=== PATIENT | male | born 2000 | race Caucasian/White ===

== ENCOUNTER 2024-12-02 18:51 | Emergency (ER) | payer BC, SELFPAY ==
[2024-12-02 19:01] VITALS: BP 129/84; PULSE 66; TEMP 37.1; O2SAT 97; BMI 24.4
[2024-12-02 20:25] VITALS: O2SAT 97
[2024-12-02 20:37] LABS: Basophils Absolute Auto 0.1 10^3/uL (0.0-0.1); Basophils Percent Auto 0.5 % (0.2-2.0); Eosinophils Absolute Auto 0.2 10^3/uL (0.0-0.7); Eosinophils Percent Auto 1.4 % (0.9-7.0); Hematocrit 42.3 % (42.0-54.0); Hemoglobin 14.2 g/dL (14.0-18.0); Immature Granulocytes Abs Auto 0.04 10^3/uL (0.00-0.03); Immature Granulocytes Pct Auto 0.4 % (0.0-0.5); Lymphocytes Absolute Auto 2.2 10^3/uL (1.2-3.8); Lymphocytes Percent Auto 20.9 % (20.5-60.0); Mean Corpuscular HGB Conc 33.6 g/dL (29.9-35.2); Mean Corpuscular Hemoglobin 30.5 pg (25.9-34.0); Monocytes Absolute Auto 0.9 10^3/uL (0.3-0.8); Monocytes Percent Auto 8.9 % (1.7-12.0); Neutrophils Absolute Auto 7.1 10^3/uL (1.4-6.5); Neutrophils Percent Auto 67.9 % (43.0-75.0); Platelet Count 332 10^3/uL (150-450); Red Blood Count 4.65 10^6/uL (4.70-6.10); Red Cell Distribution Width 12.8 % (11.0-15.0); White Blood Count 10.4 10^3/uL (4.0-11.0)
[2024-12-02 20:38] LABS: Bilirubin Urine NEGATIVE (NEGATIVE); Blood Urine NEGATIVE (NEGATIVE); Clarity Urine CLEAR (CLEAR); Color Urine LT. YELLOW (YELLOW); Glucose Urine UA NEGATIVE (NEGATIVE); Ketones Urine NEGATIVE (NEGATIVE); Leukocyte Esterase Urine NEGATIVE (NEGATIVE); Nitrite Urine NEGATIVE (NEGATIVE); Protein Urine NEGATIVE (NEG/TRACE); Urobilinogen Urine 0.2 EU/dL (0.2-1.0); pH Urine 6.5 (5.0-9.0)
[2024-12-02 20:45] LABS: Bacteria Urine NONE SEEN #/HPF (NONE SEEN); Cast Seen? NONE SEEN #/LPF (NONE SEEN); Crystals Seen? None Seen #/HPF (None Seen); Mucus Urine NONE SEEN (NONE SEEN); RBC Urine NONE SEEN #/HPF (0-2); Squamous Epithelial Cell Urine RARE #/LPF (NONE/RARE); WBC Urine 0-2 #/HPF (NONE SEEN)
[2024-12-02 20:47] LABS: Anion Gap 15.2; Calcium 8.8 mg/dL (8.5-10.1); Carbon Dioxide 29.5 mmol/L (21.0-32.0); Chloride 104 mmol/L (98-107); Estimated GFR (African America >60 (>=60 mL/min/1.73m^2); Estimated GFR (Non-African Ame >60 (>=60 mL/min/1.73m^2); Glucose 118 mg/dL (74-106); Potassium 3.7 mmol/L (3.5-5.1); Sodium 145 mmol/L (136-145)
--- NOTE | 2024-12-02 21:15 | ED_ITS ---
HPI HPI - General Adult General Stated complaint: POSS BLOOD CLOT, SOB-KIDNEY DISEASE Time Seen by Provider: 12/02/24 19:00 Source: patient Mode of arrival: walk-in History of Present Illness HPI narrative: cc = multiple concerns Patient is working in [place], lives in [place] and is not returning there until January. He has multiple concerns in his ED visit. He has been off of several of his medications for some time . He says that he has not been able to get refills in this area, but he has also not talk to his primary care physician about getting refills transferred to a local pharmacy such as [facility] or [facility] or even [facility]. He has nephrotic syndrome and has also been previously diagnosed with blood clot in the legs. He is concerned about some pain on the right side of his chest. He admits that he has a nonproductive cough has been present for several days and that the pain started after the cough started. No fever or chills. No vomiting or diarrhea. He also has a prominent vein in the anterior portion of the right lower leg, just proximal to the ankle, which he said made him concerned that he might have a blood clot. No calf pain, popliteal pain, lower extremity swelling that is unilateral. He has some mild bilateral edema. No problems urinating or having a bowel movement. He is concerned about a worsening of his nephrotic syndrome as the etiology for his bilateral lower extremity swelling. He is also concerned about blood clot being the possibility as the cause of his prominent vein in his right lower leg and the right sided chest pain. Related Data Home Medications ?Medication ?Instructions ?Recorded ?Confirmed losartan 25 mg tablet (Cozaar) 25 mg PO DAILY 12/02/24 12/02/24 mycophenolate mofetil 500 mg 500 mg PO BID 12/02/24 12/02/24 tablet (CellCept) prednisone 10 mg tablet 10 mg PO DAILY 12/02/24 12/02/24 rosuvastatin 5 mg tablet (Crestor) 5 mg PO DAILY 12/02/24 12/02/24 tacrolimus 1 mg capsule, 1 mg PO Q12H 12/02/24 12/02/24 immediate-release (Prograf) Allergies Allergy/AdvReac Type Severity Reaction Status Date / Time Iodinated Contrast Media AdvReac Severe Anaphylaxis Verified 12/02/24 19:00 NSAIDS (Non-Steroidal AdvReac Severe Anaphylaxis Verified 12/02/24 19:00 Anti-Inflamma Opioid HPI Opioid Management Most Recent Opioid Data: No Data to Display PFSH PFSH Social History Little interest or pleasure in doing things: not at all Feeling down, depressed, or hopeless: not at all Exam Narrative Exam Narrative: Nurses notes and vital signs reviewed and patient is not hypoxic. afebrile General: Well-appearing and in no apparent distress. Skin: Warm, dry, no pallor noted. No rash. Head: Normocephalic, atraumatic. Neck: Supple, non-tender. No meningismus. Eye: Pupils are equal, round and EOMI. No scleral icterus. Ears, Nose, Mouth, and Throat: TM are clear, no posterior oropharynx erythema or nasal mucosal hypertrophy, uvula is mid-line Oral mucosa is moist Cardiovascular: Regular Rate and Rhythm without murmur, gallop or rub. Respiratory: No accessory muscle use or respiratory distress. Lungs are clear to auscultation, no wheezing, rales or rhonchi Chest Wall: Lateral right-sided chest wall tenderness without crepitus or subcutaneous emphysema Back: No midline thoracic or lumbar vertebral tenderness. No CVA tenderness Musculoskeletal: normal ROM, no calf or popliteal tenderness, bilateral lower extremity nonpitting edema/swelling GI: Abdomen is soft, non-distended. Normal bowel sounds. No masses appreciated. No tenderness to palpation. No rebound, guarding, or rigidity noted. Neurological: A&O x4. No cranial nerve dysfunction observed. No truncal ataxia. Moves all extremities. Sensation intact. Psychiatric: Cooperative and interactive. Normal mood and affect. Constitutional Vital Signs, click to edit/add: Last Vital Signs Temp 98.7 F 12/02/24 19:01 Pulse 66 12/02/24 19:01 Resp 14 12/02/24 20:25 BP 129/84 12/02/24 19:01 Pulse Ox 97 12/02/24 20:25 O2 Del Method Room Air 12/02/24 20:25 Course Vital Signs Vital signs: Vital Signs Temperature 98.7 F 12/02/24 19:01 Pulse Rate 66 12/02/24 19:01 Respiratory Rate 18 12/02/24 19:01 Blood Pressure 129/84 12/02/24 19:01 Pulse Oximetry 97 12/02/24 19:01 Oxygen Delivery Method Room Air 12/02/24 19:01 Temperature 98.7 F 12/02/24 19:01 Pulse Rate 66 12/02/24 19: Respiratory Rate 14 12/02/24 20:25 Blood Pressure 129/84 12/02/24 19:01 Pulse Oximetry 97 12/02/24 20:25 Oxygen Delivery Method Room Air 12/02/24 20:25 Medical Decision Making MDM Narrative Medical decision making narrative: CBC, BMP, UA and chest x-ray all unremarkable. Results were printed off and shared with the patient. He was given reassurance and discharged home with recommendation to take Tylenol as needed for any continued pain. He was also encouraged to call his PCP to get his prescriptions transferred to a local pharmacy and resume his medications as scheduled Lab Data Lab results reviewed: Yes I reviewed the patient's lab results Labs: Lab Results 12/02/24 12/02/24 Range/Units 20:10 20:15 WBC 10.4 (4.0-11.0) 10^3/uL RBC 4.65 L (4.70-6.10) 10^6/uL Hgb 14.2 (14.0-18.0) g/dL Hct 42.3 (42.0-54.0) % MCV 91.0 (80.0-94.0) fL MCH 30.5 (25.9-34.0) pg MCHC 33.6 (29.9-35.2) g/dL RDW 12.8 (11.0-15.0) % Plt Count 332 (150-450) 10^3/uL MPV 10.0 (9.5-13.5) fL Neut % (Auto) 67.9 (43.0-75.0) % Lymph % (Auto) 20.9 (20.5-60.0) % Gonzales % (Auto) 8.9 (1.7-12.0) % Eos % (Auto) 1.4 (0.9-7.0) % Baso % (Auto) 0.5 (0.2-2.0) % Neut # (Auto) 7.1 H (1.4-6.5) 10^3/uL Lymph # (Auto) 2.2 (1.2-3.8) 10^3/uL Gonzales # (Auto) 0.9 H (0.3-0.8) 10^3/uL Eos # (Auto) 0.2 (0.0-0.7) 10^3/uL Baso # (Auto) 0.1 (0.0-0.1) 10^3/uL Abs Immat Gran (auto) 0.04 H (0.00-0.03) 10^3/uL Imm/Tot Granulo (auto) 0.4 (0.0-0.5) % Sodium 145 (136-145) mmol/L Potassium 3.7 (3.5-5.1) mmol/L Chloride 104 (98-107) mmol/L Carbon Dioxide 29.5 (21.0-32.0) mmol/L Anion Gap 15.2 BUN 9.0 (7.0-18.0) mg/dL Creatinine 0.75 (0.70-1.30) mg/dL Est GFR ( Amer) >60 (>=60 mL/min/1.73m^2) Est GFR (Non-Af Amer) >60 (>=60 mL/min/1.73m^2) BUN/Creatinine Ratio 12.0 Glucose 118 H (74-106) mg/dL Calcium 8.8 (8.5-10.1) mg/dL Urine Color Lt. yellow (YELLOW) Urine Clarity Clear (CLEAR) Urine pH 6.5 (5.0-9.0) Ur Specific [place] 1.010 (1.005-1.025) Urine Protein Negative (NEG/TRACE) mg/dL Urine Glucose (UA) Negative (NEGATIVE) mg/dL Urine Ketones Negative (NEGATIVE) mg/dL Urine Occult Blood Negative (NEGATIVE) Urine Nitrite Negative (NEGATIVE) Urine Bilirubin Negative (NEGATIVE) Urine Urobilinogen 0.2 (0.2-1.0) EU/dL Ur Leukocyte Esterase Negative (NEGATIVE) Urine RBC None seen (0-2) #/HPF Urine WBC 0-2 A (NONE SEEN) #/HPF Ur Squamous Epith Cells Rare (NONE/RARE) #/LPF Urine Crystals None seen (None Seen) #/HPF Urine Bacteria None seen (NONE SEEN) #/HPF Urine Casts None seen (NONE SEEN) #/LPF Urine Mucus None seen (NONE SEEN) Imaging Data Chest x-ray: My impression: No acute infiltrate, consolidation, pneumothorax, rib fracture or other worrisome finding Discharge Plan Discharge Clinical Impression: Acute chest wall pain, Edema, peripheral Patient Disposition: Home, Self-Care Time of Disposition Decision: 21:19 Prescriptions / Home Meds: No Action losartan [Cozaar] 25 mg tablet 25 mg PO DAILY prednisone 10 mg tablet 10 mg PO DAILY tacrolimus [Prograf] 1 mg capsule 1 mg PO Q12H mycophenolate mofetil [CellCept] 500 mg tablet 500 mg PO BID rosuvastatin [Crestor] 5 mg tablet 5 mg PO DAILY Print Language: Mozambican Instructions: Leg Edema (ED), Chest Wall Pain (ED) Referrals: Physician,Non-Staff, MD [Primary Care Provider] - 1 week
[2024-12-02 21:50] VITALS: BP 123/78; PULSE 60; O2SAT 97
== END 2024-12-02 21:52 | disposition home or self-care (01) ==
PROVIDERS: Emergency Provider Emergency Medicine
DX: R07.89 Other chest pain (principal); R60.0 Localized edema; N04.9 Nephrotic syndrome with unspecified morphologic changes
CPT/HCPCS: 36415; 71046; 80048; 81001; 85025; 99285